=== PATIENT | male | born 1965 | race Caucasian/White ===

== ENCOUNTER 2024-05-03 20:09 | Inpatient (IN) | payer MEDICAID, OTHER ==
[~2024-05-03] VITALS: Ht 167.6 cm; Wt 67.8 kg
[2024-05-03 20:59] LABS: Basophils # (auto) 0.1 10 ^3/uL (0-0.2); Basophils % (auto) 0.6 % (0.0-2.0); Eosinophils # (auto) 0.1 10 ^3/uL (0-0.8); Eosinophils % (auto) 0.9 % (0.0-7.0); Hematocrit 40.7 % (41.0-53.0); Lymphocytes # (auto) 1.1 10 ^3/uL (0.4-5.4); Lymphocytes % (auto) 12.2 % (10.0-50.0); Mean Corpuscular Hemoglobin 31.2 pg (28.0-32.0); Mean Corpuscular Hgb Conc. 34.3 g/dL (32.0-36.0); Monocytes # (auto) 0.6 10 ^3/uL (0-1.3); Monocytes % (auto) 7.5 % (0.0-12.0); Neutrophils # (auto) 6.9 10 ^3/uL (1.6-8.6); Neutrophils % (auto) 78.8 % (37.0-80.0); Nucleated Red Blood Cells % 0.1 %; Red Blood Cells 4.48 10^6/uL (4.5-5.90); Red Cell Distribution Width 13.5 % (11.8-14.3); White Blood Cell 8.7 10^3/uL (4.4-10.8)
[2024-05-03 21:13] LABS: INR 1.01 (0.9-1.15); Prothrombin Time 10.7 sec (9.3-11.8)
[2024-05-03 21:19] LABS: Alanine Aminotransferase 56 U/L (7-40); Albumin 4.5 g/dL (3.2-4.8); Alkaline Phosphatase 168 U/L (46-116); Anion Gap 6 (5-15); Aspartate Aminotransferase 29 U/L (13-40); BUN/Creatinine Ratio 14.9 (10.0-20.0); Blood Alcohol < 3.0 mg/dL (<10); Blood Urea Nitrogen 17 mg/dL (9-23); Calcium 9.9 mg/dL (8.7-10.4); Carbon Dioxide 28 mmol/L (20-30); Chloride 110 mmol/L (98-107); Glucose 145 mg/dL (74-106); Lactic Acid w/Reflex 2.1 mmol/L (0.4-2.0); Sodium 144 mmol/L (136-145)
[2024-05-03 21:20] LABS: Bilirubin, Total 0.5 mg/dL (0.2-1.0); Total Protein 6.8 g/dL (5.7-8.2)
[2024-05-03 21:52] LABS: Lipase 28 U/L (12-53)
[2024-05-03] MEDS: IOHEXOL 350 MG/ML 100ML IJ ONE (22:01)
[2024-05-04] MEDS ORDERED: ONDANSETRON HCL 4 MG/2 ML VIAL IV PRN (03:30)
[2024-05-04 04:02] LABS: Urine Bacteria None Seen /hpf (None Seen)
[2024-05-04 04:11] LABS: Urine Blood Negative /uL (Negative); Urine Clarity Clear (Clear); Urine Color Yellow (Yellow); Urine Mucus FEW (None Seen); Urine Protein, UAD 1+ (Negative); Urine Urobilinogen Normal (Negative); Urine WBC 1 /hpf (0 - 3); Urine pH 5.5 (5.0-9.0)
[2024-05-04 04:13] LABS: Urine Specific Gravity > 1.050 (1.001-1.035)
[2024-05-04] MEDS: SODIUM CHLORIDE 0.9% 1,000 ML IV SCH (04:20)
[2024-05-04 04:23] LABS: Amphetamine Screen, Urine Neg (NEGATIVE); Barbiturate Scree,Urine Neg (NEGATIVE); Benzodiazephine Screen, Urine Neg (NEGATIVE); Cannabinoid Screen, Urine Pos (NEGATIVE); Cocaine Screen, Urine Neg (NEGATIVE); Opiate Scree,Urine Neg (NEGATIVE); Phencyclidine Screen, Urine Neg (NEGATIVE)
[2024-05-04] MEDS ORDERED: NIFE90TA75 PO (06:14)
[2024-05-04 08:00] VITALS: PULSE 48; RESP 12; O2SAT 95
[2024-05-04 11:06] LABS: LDL Cholesterol 72 mg/dL (< 100)
[2024-05-04 11:07] LABS: Cholesterol 146 mg/dL (< 200); Triglycerides 154 mg/dL (< 150)
[2024-05-04 11:09] LABS: HDL Cholesterol 51 mg/dL (40-59)
[2024-05-04] MEDS: ASPirin 81 mg TAB PO SCH (12:10)
[2024-05-04] MEDS: ENOXAPARIN SOD 40 MG/0.4 ML SYRINGE SC SCH (12:11)
[2024-05-04 18:16] VITALS: BP 117/71; PULSE 55; RESP 18; TEMP 98.2; O2SAT 99
[2024-05-04 20:00] VITALS: PULSE 65; PULSE 72; RESP 17; O2SAT 92
[2024-05-04 21:00] VITALS: BP_SYST 106; BP_SYST 112; BP_DIAS 58; BP_DIAS 68; PULSE 61; PULSE 65; RESP 17; RESP 19; TEMP 97.5; TEMP 98.3; O2SAT 92; O2SAT 96
[2024-05-04] MEDS: ATORVASTATIN 20 MG TAB PO SCH (22:27)
[2024-05-05] VITALS (8 sets, daily range): BP systolic 125–158; BP diastolic 64–85; PULSE 51–77; RESP 16–20; TEMP 97.6–98.5; O2SAT 91–97
[2024-05-05 05:24] LABS: Chloride 112 mmol/L (98-107); Potassium 3.9 mmol/L (3.5-5.1); Sodium 147 mmol/L (136-145)
[2024-05-05 05:25] LABS: Anion Gap 3 (5-15); Calcium 8.9 mg/dL (8.7-10.4); Carbon Dioxide 32 mmol/L (20-30)
[2024-05-05 05:30] LABS: BUN/Creatinine Ratio 23.1 (10.0-20.0); Blood Urea Nitrogen 21 mg/dL (9-23); Glucose 99 mg/dL (74-106)
[2024-05-05] MEDS ORDERED: LORazepam 2MG/ML-1ML VIAL IV PRN (22:30)
[2024-05-06] VITALS (15 sets, daily range): BP systolic 99–186; BP diastolic 55–112; PULSE 59–81; RESP 12–21; TEMP 97.6–99.4; O2SAT 90–100
[2024-05-06] MEDS: LORazepam 2MG/ML-1ML VIAL IV ONE (07:51)
[2024-05-06] MEDS: LIDOCAINE VISCOUS 2% 15ML UD PO ONE (09:30)
[2024-05-06] MEDS: MIDAZOLAM HCL 2MG/2ML 2ml VIAL (1mg/ml) IV ONE (09:30)
[2024-05-06] MEDS: fentaNYL CITRATE 100 MCG/2 ML VL IV ONE (09:30)
[2024-05-06 13:07] LABS: Alanine Aminotransferase 41 U/L (7-40); Albumin 4.1 g/dL (3.2-4.8); Alkaline Phosphatase 157 U/L (46-116); Anion Gap 7 (5-15); Aspartate Aminotransferase 27 U/L (13-40); Bilirubin, Total 0.6 mg/dL (0.2-1.0); Calcium 9.4 mg/dL (8.7-10.4); Carbon Dioxide 24 mmol/L (20-30); Chloride 108 mmol/L (98-107); Glucose 90 mg/dL (74-106); Magnesium 2.2 mg/dL (1.6-2.6); Potassium 3.9 mmol/L (3.5-5.1); Sodium 139 mmol/L (136-145); Total Protein 6.8 g/dL (5.7-8.2)
[2024-05-06 13:10] LABS: Blood Urea Nitrogen 8 mg/dL (9-23)
[2024-05-07 01:00] VITALS: BP 159/78; PULSE 73; RESP 16; TEMP 99.1; O2SAT 92
[2024-05-07] MEDS: hydrALAZINE HCL 20 MG/ML VL IV PRN (02:07)
[2024-05-07 07:30] VITALS: PULSE 58; PULSE 65; RESP 18; O2SAT 97
[2024-05-07 09:04] LABS: Hepatitis B Surface Antigen Negative (Negative)
[2024-05-07 09:07] VITALS: BP 130/77; PULSE 20; RESP 70; TEMP 97.9; O2SAT 94
[2024-05-07 10:35] LABS: Basophils # (auto) 0 10 ^3/uL (0-0.2); Basophils % (auto) 0.2 % (0.0-2.0); Eosinophils # (auto) 0.1 10 ^3/uL (0-0.8); Eosinophils % (auto) 0.8 % (0.0-7.0); Hematocrit 43.4 % (41.0-53.0); Hemoglobin 14.7 g/dL (13.5-17.5); Lymphocytes # (auto) 1.6 10 ^3/uL (0.4-5.4); Lymphocytes % (auto) 14.8 % (10.0-50.0); Mean Corpuscular Hemoglobin 30.7 pg (28.0-32.0); Mean Corpuscular Hgb Conc. 33.9 g/dL (32.0-36.0); Mean Corpuscular Volume 90.6 fL (80.0-100.0); Monocytes % (auto) 8.9 % (0.0-12.0); Neutrophils # (auto) 8.3 10 ^3/uL (1.6-8.6); Neutrophils % (auto) 75.3 % (37.0-80.0); Nucleated Red Blood Cells % 0.3 %; Red Cell Distribution Width 13.3 % (11.8-14.3); White Blood Cell 11.1 10^3/uL (4.4-10.8)
[2024-05-07 10:56] LABS: Alanine Aminotransferase 33 U/L (7-40); Albumin 4.1 g/dL (3.2-4.8); Alkaline Phosphatase 158 U/L (46-116); Anion Gap 3 (5-15); Aspartate Aminotransferase 21 U/L (13-40); Blood Urea Nitrogen 10 mg/dL (9-23); Calcium 9.6 mg/dL (8.7-10.4); Carbon Dioxide 31 mmol/L (20-30); Chloride 105 mmol/L (98-107); Glucose 100 mg/dL (74-106); Potassium 3.9 mmol/L (3.5-5.1); Sodium 139 mmol/L (136-145)
[2024-05-07 10:57] LABS: Bilirubin, Total 0.8 mg/dL (0.2-1.0); Total Protein 6.5 g/dL (5.7-8.2)
[2024-05-07 11:50] LABS: Hepatitis C Antibody Negative (Negative)
[2024-05-07] MEDS: NICOTINE 7MG/24HR TOPICAL PATCH TD SCH (12:32)
[2024-05-07 12:44] VITALS: BP 151/91; PULSE 51; RESP 17; TEMP 97.9; O2SAT 98
[2024-05-07] MEDS ORDERED: NIC21P TOP (12:48)
[2024-05-07] MEDS ORDERED: ASPI-498 PO (14:30)
[2024-05-08] MEDS ORDERED: NICOTINE 7MG/24HR TOPICAL PATCH TD SCH (10:00)
[2024-05-08] MEDS ORDERED: NIFEdipine ER 30 MG TAB PO SCH (10:00)
[2024-05-08] MEDS ORDERED: CLOPIDOGREL BISULFATE 75 MG TAB PO SCH (10:00)
== END 2024-05-07 15:42 | disposition home or self-care (01) | DRG 45 ==
LOC: EDBD 20:09 → ER 20:09 → OVERFLOW 05-04 03:22 → WEST WING 05-04 17:44 → TELE-WESTW 05-04 22:10
PROVIDERS: ADMIT Internal Medicine; ATTEND Emergency Medicine
PROC: B24BZZ4 Ultrasonography of Heart with Aorta, Transesophageal (ICD-10-PCS; principal; 2024-05-06)
DX: I63.9 Cerebral infarction, unspecified (principal); I69.351 Hemiplegia and hemiparesis following cerebral infarction affecting right dominant side; E78.5 Hyperlipidemia, unspecified; I10 Essential (primary) hypertension; N40.1 Benign prostatic hyperplasia with lower urinary tract symptoms; F15.10 Other stimulant abuse, uncomplicated; R39.15 Urgency of urination; M62.542 Muscle wasting and atrophy, not elsewhere classified, left hand; M62.541 Muscle wasting and atrophy, not elsewhere classified, right hand; R29.810 Facial weakness; R47.81 Slurred speech; Z82.49 Family history of ischemic heart disease and other diseases of the circulatory system; Z79.82 Long term (current) use of aspirin; Z79.899 Other long term (current) drug therapy; Z87.891 Personal history of nicotine dependence; Z91.199 Patient's noncompliance with other medical treatment and regimen due to unspecified reason
CPT/HCPCS: 36415; 70551; 71045; 80048; 80053; 80061; 80307; 80320; 81001; 82962; 83036; 83605; 83690; 83735; 83880; 84443; 84484; 85025; 85610; 86803; 87340; 92610; 93005; 93306; 93312; 97110; 97116; 97163; 97530; 99152; G0378; J2250